=== PATIENT | female | born 1960 | race Caucasian/White ===

== ENCOUNTER 2020-11-22 17:08 | Emergency (ER) | payer SELFPAY ==
[~2020-11-22] VITALS: Ht 165.1 cm; Wt 72.6 kg
[~2020-11-22 17:08] MED LIST: CALCIUM500 MG PO; CENTRUM SILVER1 EAC1 PO; ECHINACEA GOLD; ECHINACEA500 MG PO; GLUCOSAMINE CH1 EAC2 PO; KEFLEX500 MG PO; NORCO 5-325 TA1 EACH PO; OMEGA 3 500 SO1 EACH PO; VICODIN 5-3001 EACH PO; VITAMIN B-121000 MC1 PO; VITAMIN C1000 MG PO
== END 2020-11-22 21:30 | disposition left against medical advice (07) ==
LOC: ED 17:08
DX: M25.571 Pain in right ankle and joints of right foot (principal); Z88.1 Allergy status to other antibiotic agents; Z79.899 Other long term (current) drug therapy
CPT/HCPCS: 73610; 99283-25